=== PATIENT | female | born 1985 | race African-American/Black ===

== ENCOUNTER 2019-02-26 18:43 | Emergency (ER) | payer OTHER ==
[~2019-02-26] VITALS: Ht 162.6 cm; Wt 101.6 kg
[2019-02-26 19:08] VITALS: Ht 162.6 cm; Wt 101.6 kg
[2019-02-26 20:30] VITALS: BP 113/59
== END 2019-02-26 20:30 | disposition home or self-care (01) ==
LOC: ED 18:43
DX: S83.91XA Sprain of unspecified site of right knee, initial encounter (principal); W01.0XXA Fall on same level from slipping, tripping and stumbling without subsequent striking against object, initial encounter; Y93.89 Activity, other specified; Y92.89 Other specified places as the place of occurrence of the external cause; Y99.8 Other external cause status